=== PATIENT | female | born 1955 | race Caucasian/White ===

== ENCOUNTER 2020-02-08 06:15 | Day surgery (SDC) | payer MEDICARE, OTHER ==
[2020-02-06 15:04] VITALS: BMI 37.0
[~2020-02-08 06:15] MED LIST: ACETAMINOPHEN TAB 500 MG TAB PO ONE; HEPARIN SODIUM,PORCINE 5,000 UNIT/ML 1 ML VIAL SQ ONE; LACTATED RINGERS 1,000 ML IV SCH; MIDAZOLAM 2 MG/2 ML VIAL IV PRN; ONDANSETRON 4 MG/2 ML VIAL IVP PRN; fentaNYL (PF) 50 MCG/ML 2 ML AMP IV PRN
[2020-02-08] MEDS ORDERED: LIDOCAINE 1% (10MG/ML) FOR IV START INTRADERMA ONE (07:21)
[2020-02-08] MEDS ORDERED: PROPOFOL 10 MG/ML 20 ML VIAL IV ONE (07:41)
[2020-02-08] MEDS ORDERED: LIDOCAINE 1% INJ 10MG/ML (20 ML MDV) ONE (07:41)
[2020-02-08] MEDS ORDERED: NEOSTIGMINE 1 MG/ML 10 ML VIAL ONE (07:41)
[2020-02-08] MEDS ORDERED: fentaNYL (PF) 50 MCG/ML 2 ML AMP ONE (07:41)
[2020-02-08] MEDS ORDERED: GLYCOPYRROLATE 0.2 MG/ML 2 ML VIAL ONE (07:41)
[2020-02-08] MEDS ORDERED: ROCURONIUM 10 MG/ML (10 ML VIAL) IV ONE (07:41)
[2020-02-08] MEDS ORDERED: SUCCINYLCHOLINE CHLORIDE 100 MG/5 ML SYR IV ONE (07:41)
[2020-02-08] MEDS ORDERED: MIDAZOLAM 2 MG/2 ML VIAL ONE (07:41)
[2020-02-08] MEDS ORDERED: BUPIVACAINE (PF) 0.25% 30 ML VIAL SQ ONE (08:00)
--- NOTE | 2020-02-08 08:32 | P.GSHP ---
History of Present Illness H&P Date: 02/08/20 Chief Complaint: Right upper quadrant pain Is a 64-year-old female who presents today for laparoscopic cholecystectomy. Patient is a complete the right quadrant pain. She's had a previous HIDA scan which shows a hyperkinetic gallbladder. She's had problems with epigastric and right upper quadrant pain after eating greasy and fried foods. Past Medical History Past Medical History: No Reported History History of Any Multi-Drug Resistant Organisms: None Reported Past Surgical History: Appendectomy, Section, Hysterectomy, Orthopedic Surgery Additional Past Surgical History / Comment(s): neck surgery 2012, disc replaced and "device" in neck, angelito wrist ganglion cysts removed, left carpal tunnel, rt hand sx X10, left arm sx, left rotator cuff, Past Anesthesia/Blood Transfusion Reactions: Previous Problems w/ Anesthesia, Postoperative Nausea & Vomiting (PONV) Additional Past Anesthesia/Blood Transfusion Reaction / Comment(s): states she has woke up in the middle of surgeries in the past, "sat right up" states her father did the same thing, states also for 2 spinals she felt everything Smoking Status: Former smoker - Past Family History Mother Family Medical History: No Reported History Medications and Allergies Home Medications Medication Instructions Recorded Confirmed Type Fluticasone Nasal [place] [Flonase 2 spr EA NOSTRIL DAILY 02/06/20 02/08/20 Hist ory Nasal [place]] L.acidoph,Paracasei, B.lactis 1 each PO DAILY 02/08/20 02/08/20 History [Probiotic] Allergies Allergy/AdvReac Type Severity Reaction Status Date / Time acetaminophen [From Vicodin] Allergy "red skin" Verified 02/08/20 06:47 codeine Allergy "red skin" Verified 02/08/20 06:47 hydrocodone [From Vicodin] Allergy "red skin" Verified 02/08/20 06:47 metronidazole [From Flagyl] Allergy "loses Verified 02/08/20 06:47 voice" morphine Allergy "red skin" Verified 02/08/20 06:47 and agitation oxycodone Allergy "red skin" Verified 02/08/20 06:47 tetracycline Allergy Unknown Verified 02/08/20 06:47 adhesive tape AdvReac "skin Verified 02/08/20 06:47 breaks out" Surgical - Exam Vital Signs Temp Pulse Resp BP Pulse Ox 98.8 F 78 16 148/80 97 02/08/20 06:43 02/08/20 06:43 02/08/20 06:43 02/08/20 06:43 02/08/20 06:43 - General well developed, well nourished, no distress - Eyes PERRL - ENT normal pinna, normal nares - Neck no masses - Respiratory normal expansion - Cardiovascular Rhythm: regular - Abdomen Abdomen: soft, non tender Assessment and Plan Assessment: Right upper quadrant pain Chronic cholecystitis We'll perform laparoscopic cholecystectomy
[2020-02-08 08:37] VITALS: TEMP 98.2
[2020-02-08] MEDS: HYDROmorphone 0.5 MG/0.5 ML SYRINGE IVP PRN ×2 (08:40→08:52)
--- NOTE | 2020-02-08 08:42 | P.OP ---
Date of Procedure: 02/08/20 Preoperative Diagnosis: Cholecystitis Postoperative Diagnosis: Cholecystitis Procedure(s) Performed: Laparoscopic cholecystectomy Anesthesia: VINNIE Surgeon: Chapin Borrero Estimated Blood Loss (ml): 5 Pathology: other (Gallbladder) Condition: stable Disposition: PACU Description of Procedure: The patient was placed on the operating table. The patient received a general endotracheal tube anesthesia. The patients abdomen was prepped and draped in the usual sterile fashion. Through an infraumbilical stab incision, the fascia of the anterior abdominal wall was grasped with a pair of Kochers and then the Veress needle was placed in the peritoneal cavity. Position of the Veress needle was confirmed with positive drop test. The abdomen was then insufflated. After adequate insufflation, the 10 mm trocar was placed in the peritoneal cavity. Following this the laparoscope was placed in the peritoneal cavity. The patient was placed in the head-up, right side up position and then a 5 mm trocar was placed in the right lateral and right subcostal position under direct visualization. A 8 mm trocar was placed in the epigastric position. The gallbladder was grasped in the fundus and infundibulum. Traction on the gallbladder was placed in the lateral and the cephalad positions. The triangle of Calot was visualized.. The cystic duct was bluntly dissected until the union of the cystic duct and common bile duct was seen. A critical view of safety was achieved. The cystic duct was then divided and sealed with the Harmonic scissors. A PDS Endoloop was then placed throughout the cystic duct stump. The cystic artery divided and sealed with the Harmonic scissors. The gallbladder was then removed from the liver bed using Harmonic scissors. The gallbladder was then extracted through the epigastric port site. Operative field was checked for any bleeding spots and Harmonic scissors was used to coagulate the liver bed. The abdomen was irrigated. The trocars were removed. The skin was closed using interrupted 3-0 Vicryl suture. Dermabond dressing were applied. The patient tolerated the procedure well.
[2020-02-08 09:15] VITALS: RESP 16
[2020-02-08] MEDS ORDERED: LACTATED RINGERS 1,000 ML IV ONE ×2 (09:37)
[2020-02-08 09:52] VITALS: BP 132/72; PULSE 66
== END 2020-02-08 10:20 ==
LOC: OR 06:15
PROVIDERS: ATTEND Surgery
DX: K81.1 Chronic cholecystitis (principal); Z88.6 Allergy status to analgesic agent; Z90.49 Acquired absence of other specified parts of digestive tract; Z98.890 Other specified postprocedural states; Z90.710 Acquired absence of both cervix and uterus; Z87.39 Personal history of other diseases of the musculoskeletal system and connective tissue; Z86.69 Personal history of other diseases of the nervous system and sense organs; Z91.89 Other specified personal risk factors, not elsewhere classified; Z87.898 Personal history of other specified conditions; Z87.891 Personal history of nicotine dependence; Z79.899 Other long term (current) drug therapy; Z88.5 Allergy status to narcotic agent; Z88.1 Allergy status to other antibiotic agents; Z91.09 Other allergy status, other than to drugs and biological substances; Z98.1 Arthrodesis status
CPT/HCPCS: 88304; 47562; J2250; J1644; J2710; J0690; J2405; J2001; J3010; J0330; J2704; J1170

== ENCOUNTER 2022-02-06 07:25 | Day surgery (SDC) | payer MEDICARE, OTHER ==
[~2022-02-06 07:25] MED LIST changes: -ACETAMINOPHEN TAB 500 MG TAB PO ONE; -HEPARIN SODIUM,PORCINE 5,000 UNIT/ML 1 ML VIAL SQ ONE; -MIDAZOLAM 2 MG/2 ML VIAL IV PRN; -ONDANSETRON 4 MG/2 ML VIAL IVP PRN; -fentaNYL (PF) 50 MCG/ML 2 ML AMP IV PRN
[2022-02-06 07:46] VITALS: TEMP 97.4
[2022-02-06] MEDS ORDERED: LACTATED RINGERS 1,000 ML IV ONE (07:51)
[2022-02-06 07:57] LABS: Glucose,Whole Blood 93 mg/dL (70-110)
[2022-02-06] MEDS ORDERED: PROPOFOL 10 MG/ML 20 ML VIAL IV ONE (08:23)
--- NOTE | 2022-02-06 08:23 | P.GSHP ---
History of Present Illness H&P Date: 02/06/22 Chief Complaint: Screening colonoscopy This a 66-year-old female who presents today for screening colonoscopy. Patient denies a significant GI complaints. Past Medical History Past Medical History: Diabetes Mellitus Additional Past Medical History / Comment(s): supposed to take metformin for "pre-diabetes" History of Any Multi-Drug Resistant Organisms: None Reported Past Surgical History: Appendectomy, Section, Hysterectomy, Orthopedic Surgery Additional Past Surgical History / Comment(s): cervical fusion 2012, angelito wrist ganglion cysts removed, left carpal tunnel, rt hand sx X10, left arm sx, left rotator cuff Past Anesthesia/Blood Transfusion Reactions: Previous Problems w/ Anesthesia, Postoperative Nausea & Vomiting (PONV) Additional Past Anesthesia/Blood Transfusion Reaction / Comment(s): states she has woke up in the middle of surgeries in the past, "sat right up" states her father did the same thing, states also for 2 spinals she felt everything Smoking Status: Former smoker - Past Family History Mother Family Medical History: No Reported History Medications and Allergies Home Medications Medication Instructions Recorded Confirmed Type Cholecalciferol [Vitamin D3 (25 25 mcg PO DAILY 02/05/22 02/05/22 History Mcg = 1000 Iu)] Curcumin 1 tab PO DAILY 02/05/22 02/05/22 History Vit No.179/Iron/Folic 1 each PO DAILY 02/05/22 02/05/22 History [ Tablet] Vitamin B Complex 1 each PO DAILY 02/05/22 02/05/22 History Allergies Allergy/AdvReac Type Severity Reaction Status Date / Time acetaminophen [From Vicodin] Allergy "red skin" Verified 02/05/22 10:58 codeine Allergy "red skin" Verified 02/05/22 10:58 hydrocodone [From Vicodin] Allergy "red skin" Verified 02/05/22 10:58 metronidazole [From Flagyl] Allergy "loses Verified 02/05/22 10:58 voice" morphine Allergy "red skin" Verified 02/05/22 10:58 and agitation oxycodone Allergy "red skin" Verified 02/05/22 10:58 tetracycline Allergy Unknown Verified 02/05/22 10:58 adhesive tape AdvReac "skin Verified 02/05/22 10:58 breaks out" steri strips AdvReac hives Uncoded 02/05/22 10:58 Surgical - Exam Vital Signs Temp Pulse Resp BP Pulse Ox 97.4 F L 81 18 164/116 96 02/06/22 07:45 02/06/22 07:45 02/06/22 07:45 02/06/22 07:45 02/06/22 07:45 - General well developed, well nourished, no distress - Eyes PERRL - ENT normal pinna - Neck no masses - Respiratory normal expansion - Cardiovascular Rhythm: regular - Abdomen Abdomen: soft, non tender Assessment and Plan Assessment: We'll perform screening colonoscopy
--- NOTE | 2022-02-06 08:37 | P.OP ---
Date of Procedure: 02/06/22 Preoperative Diagnosis: Screening colonoscopy Postoperative Diagnosis: Diverticulosis Procedure(s) Performed: Colonoscopy Anesthesia: MAC Surgeon: Chapin Borrero Pathology: none sent Condition: stable Disposition: PACU Description of Procedure: The patient's placed on the endoscopy table in the lateral position. She received IV sedation. Digital rectal exam was performed this revealed no no abnormalities. The flexible colonoscope was then placed patient anus and passed throughout the entire colon. The ileocecal valve was visualized. Cecum, ascending and transverse colon appeared normal. The descending and sigmoid colon had moderate diverticular. Scope was then brought back the rectum and t his appeared normal. Scope withdrawn for patient.
[2022-02-06 09:12] VITALS: RESP 16
[2022-02-06 09:17] VITALS: BP 104/58; PULSE 81
== END 2022-02-06 09:31 | disposition home or self-care (01) ==
LOC: ORWHC2ENDO 07:25
PROVIDERS: ATTEND Surgery
DX: Z12.11 Encounter for screening for malignant neoplasm of colon (principal); K57.30 Diverticulosis of large intestine without perforation or abscess without bleeding; E11.9 Type 2 diabetes mellitus without complications; Z90.89 Acquired absence of other organs; Z98.891 History of uterine scar from previous surgery; Z90.710 Acquired absence of both cervix and uterus; Z87.891 Personal history of nicotine dependence; Z88.5 Allergy status to narcotic agent; Z88.1 Allergy status to other antibiotic agents
CPT/HCPCS: J2704; G0121; 45378